=== PATIENT | male | born 1970 | race Caucasian/White ===

== ENCOUNTER → 2017-01-18 | Outpatient (CLI) | payer BC ==
--- NOTE | 2017-01-18 08:11 | DIAGNOSTIC IMAGING REPORT ---
CT OF THE SINUSES WITHOUT CONTRAST FUSION PROTOCOL CLINICAL HISTORY: Nasal polyps. Post treatment scan. COMPARISON STUDY: Sinus CT May 25, 2014. TECHNIQUE: Axial images of the sinuses were obtained without IV contrast according to Fusion protocol. Coronal reformats were viewed. FINDINGS: Visualized portions of the intracranial contents are unremarkable. Mastoid air cells are clear. Orbits are unremarkable. There is moderate polypoid mucosal thickening of the sinuses and nasal cavity, most pronounced within the left maxillary sinus. Moderate improvement is noted since exam of May 25, 2014. The bilateral ostiomeatal complexes are patent. The sphenoethmoidal recesses are occluded. The right frontoethmoidal recess is occluded. The left is narrowed. No bony destruction is present. Cribriform plate is intact. IMPRESSION: 1. Moderate polypoid mucosal thickening of the paranasal sinuses and nasal cavity suggestive of sinonasal polyposis with moderate improvement since exam of May 25, 2014. 2. No evidence of acute sinusitis. 3. Several occluded major drainage pathways, as described above. Electronically signed by: Jason Nova M.D. 01/18/2017 8:09 AM Dictated Date/Time: 01/18/2017 7:58 AM
== END | disposition home or self-care (01) ==
LOC: C.CTS 07:44
DX: J33.9 Nasal polyp, unspecified (principal)

== ENCOUNTER → 2017-04-29 | Outpatient (CLI) | payer OTHER ==
[~2017-04-29] VITALS: Ht 179.1 cm; Wt 92.2 kg
[2017-04-29 08:46] VITALS: BP 123/79; PULSE 64; Ht 179.1 cm; Wt 92.2 kg
== END | disposition home or self-care (01) ==
LOC: C.NEUR 08:25
PROVIDERS: ATTEND Internal Medicine Pulmonary Disease
DX: G47.33 Obstructive sleep apnea (adult) (pediatric) (principal); Z72.821 Inadequate sleep hygiene

== ENCOUNTER → 2017-05-11 | Outpatient (CLI) | payer OTHER ==
--- NOTE | 2017-05-12 05:50 | PAP/PSG TECHNICIAN REPORT ---
[facility] Client Solutions Director Polysomnogram Report Study name: None Report date: 05/12/2017 Study date: 05/11/2017 Referring Physician: Dr. Dante Boucher DO Name: MEGAN SCOTT Interpreting Physician: Dante Boucher D.O. Date of : 1970 Client Solutions Director: KARIS Orozco. Sex: Male Age: 47 StudyType: PSG Weight: 203.3 lbs Height: 47 years, Height 5' 10.5" Neck Circum:17.5in. BMI: 28.76 Medications: Fluticasone Propionate 50mcg/act, Baclofen 10mg, Botox injections for Rt shoulder. Patient History Study started on room air with no ETCO2 monitoring in room #8. 47 yr old male here tonight for a Diagnostic psg. He complains of loud snoring. He has significant sinus and nasal problems. He has nasal polyps that he plans to have removed after tax season. He had a sleep study done many years ago that showed many arousals but no significant apnea. His ESS=14/24. His neck circ=17.5 inches. Parameters Monitored NPSG: E1-M2, E2-M1, Fp1-M2, Fp2-M1, F3-M2, F4-M2, F4-M1, C3-M2, C4-M2, C4-M1, O1-M2, O2-M2, O2-M1, T3-M2, T4-M1, P3-M2, P4-M1, CHIN1, CHIN2, HR, EKG, Legs, PFLOW, SNOR, FLOW, CFLOW, Tidal Volume, THOR, ABDO, SpO2, PLTH, CPRESS, ETCO2 Wave, ETCO2, pH Sleep Architecture Sleep Stages Time at Lights Off 10:43:55 PM STAGES Time (min.) TST (%) Time at Lights On 5:35:25 AM Wake 17.5 -- Total Recording Time (TRT) 411.50 min. N1 29.0 7 Total Sleep Period (TSP) 404.5 min. N2 239.5 61 Total Sleep Time (TST) 394.0min. N3 82.5 21 Awake Time 17.5 min. REM 43.0 11 Wake after Sleep Onset 10.5 min. Sleep Efficiency (SE) 96 % Sleep Onset Latency (CHRISTIANO) 7.0 min. Number of Stage 1 Shifts None Awakenings 16 Stage Changes 110 Number of REM periods 8 REM 43.0 11 REM Latency 82.0 min. NREM 351.0 89 Body Position Analysis Supine Right Left Side Prone Vertical Total Sleep Time (min.) 411.5 0.0 0.0 0.00 0.0 0.0 Total Sleep Time (%) 100% 0% 0% 0 0% N/A% Total Sleep Time REM (min.) 43.0 0.0 0.0 None 0.0 0.0 Total Sleep Time NREM (min.) 351.0 0.0 0.0 None 0.0 0.0 Intermittent Wake (min.) 17.5 0.0 0.0 None 0.0 0.0 Total Sleep Period (%) 100% None None None None None Arousals Myoclonus (PLM) * Events Count Index Events Count Index Spontaneous 29 4 Events Awake (PLMW) 29 99.4 Respiratory 2 0.5 Events Asleep w/ Arousal (PLMA) 33 5.0 PLM 33 5 Events Asleep w/o Arousal (PLMS) 152 23.1 Snoring 12 2 Total Asleep 185 28.2 Total 75 11 Total 214 31 Respiratory Analysis * CA OA MA CH H RERA Total Count 0 0 0 0 19 0 19 Index 0.0 0.0 0.0 0 2.9 0 2.9 Mean Duration 0.0 0.0 0.0 0.00 23.5 0.0 23.5 Longest Duration 0.0 0.0 0.0 0.00 0.0 0.0 59.4 Respiratory Event Summary Total Supine ~Supine Right Left Prone REM NREM Apneas Count 0 0 N/A N/A N/A N/A 0 0 Index 0.0 0 N/A N/A N/A N/A 0 0 Hypopneas (4% Desat) Count 19 19 N/A N/A N/A N/A 14 5 Index 2.9 2.9 N/A N/A N/A N/A 19.5 0.9 Apneas & All Hypopneas Count 19 19 N/A N/A N/A N/A 14 5 Index 2.9 3 N/A N/A N/A N/A 19.5 0.9 Respiratory Events (Systems Architect+All Hyp+RERA) Count 19 19 N/A N/A N/A N/A 14 5 Index 2.9 3 N/A N/A N/A N/A 19.5 0.9 Respiratory Related Arousal Count 2 19 N/A N/A N/A N/A 1 2 Index 0.5 0 N/A N/A N/A N/A 1 0 Snoring Analysis Supine Right Left Prone REM NREM Total Snore duration 9.4 min Snores count 273 N/A N/A N/A 89 184 273 Snore mean duration 2.1 Sec Snores index 42 N/A N/A N/A 124.2 31.5 41.6 TST with snoring (%) 2.4% Desaturation Event Summary: Minimum %SpO2 Event Count Mean/Min/Max Duration(sec.) Desaturation Index % Time In Bed > 90 29 25.2 / 7.3 / 51.3 4.6 92.2 86 - 90 2 12.0 / 11.0 / 13.0 3.8 7.7 81 - 85 0 N/A 0.0 0.2 76 - 80 0 N/A 0.0 0.0 71 - 75 0 N/A 0.0 0.0 66 - 70 0 N/A 0.0 0.0 61 - 65 0 N/A 0.0 0.0 56 - 60 0 N/A 0.0 0.0 51 - 55 0 N/A 0.0 0.0 < 50 0 N/A 0.0 0.0 Total REM NREM Awake <50% 0.0 min. 0.0 min. 0.0 min. 0.0 min. 51 - 60% 0.0 min. 0.0 min. 0.0 min. 0.0 min. 61 - 70% 0.0 min. 0.0 min. 0.0 min. 0.0 min. 71 - 80% 0.0 min. 0.0 min. 0.0 min. 0.0 min. 81 - 90% 31.9 min. 10.5 min. 20.7 min. 0.6 min. 91 - 100% 375.6 min. 32.5 min. 327.7 min. 15.4 min. Average 93 92 93 93 Minimum SpO2 82 85 82 82 Desaturation Event Index 4.4 23.7 1.9 6.9 # Desat. Events below 89% 7 6 1 N/A Time(%) with Saturation below 89% 1.0 0.9 0.1 0.0 Time(min.) with Saturation below 89% 4.1 3.6 0.4 0.1 Time (mins) REM (mins) NREM (mins) % of TST SpO2 Below 90% 19 12 N7 2.5 SpO2 Below 88% 3 0 0 0 Heart Rate Analysis Min (bpm) Max (bpm) Average (bpm) Awake 46 93 61 NREM 49 127 57 REM 50 80 60 Overall 49 127 57 Supplemental O2 Values Minimum O2 level: None Value Start Time End Time Client Solutions Director Comments Mr. Scott slept in the supine position with the head of the bed slightly elevated. No cardiac arrhythmia noted. Some limb movements were noted. No bruxism noted. Snoring was noted and scored as a 1 on a scale of 1 through 5. (0=no snoring, 5=snoring loud enough to be heard through a closed door or down the cohen way) He did not use the restroom during the night. He stated that he slept worse than when at home. He was more restless. The final report will be interpreted and signed by a sleep physician. The completed physician report will then be placed in the patient medical record. Therapy (cm H2O) 0 TIB (min.) 411.5 TST (min.) 394.0 Sleep Onset (min.) 7.0 REM Onset From Sleep (min.) 82.0 Sleep Efficiency % 96 Wakefulness (%) 4 Wakefulness (min.) 17.5 NREM 1 (%) 7 NREM 1 (min.) 29.0 NREM 2 (%) 61 NREM 2 (min.) 239.5 NREM 3 (%) 21 NREM 3 (min.) 82.5 REM (%) 11 REM (min.) 43.0 # Arousals 75 Arousal Index 11 # Snore 273 Snore Index 41.6 AHI 2.9 AHI Supine 3 AHI Non-Supine N/A NREM AHI 0.9 REM AHI 19.5 RDI 2.9 # Obstructive Apnea 0 # Central Apnea 0 # Mixed Apnea 0 # Hypopneas 19 RERAs 0 Total Respiratory Events 20 Time Below SpO2 89% (min.) 4.0 Mean NREM SpO2 (%) 93 Mean REM SpO2 (%) 92 Mean Sleep SpO2 (%) 93 Min NREM SpO2 (%) 82 Min REM SpO2 (%) 85 Position Supine (min.) 411.5 Position Non-supine (min.) 0.0 LM Index Sleep 28.2 LM Index NREM 30.4 LM Index REM 9.8 Mean Heart Rate (bpm) 57 Min Heart Rate (bpm) 49
--- NOTE | 2017-05-14 17:56 | Sleep Study ---
Sleep Study Report Date of Service: 05/11/2017 Sleep Study Report CLINICAL DATA: The patient is a 47-year-old male with a history of snoring, disturbed nocturnal sleep, and daytime tiredness. He has a history of nasal polyps. This was an in-lab overnight diagnostic polysomnography. His Jean Sleepiness Scale score was 14 out of a possible 24. SLEEP ARCHITECTURE: The total sleep period was 404.5 minutes. The total sleep time was 394 minutes. The sleep efficiency was normal at 96%. The sleep latency was normal at 7 minutes. Wake after sleep onset was normal at 10.5 minutes. REM latency was normal at 82 minutes. Sleep consisted of stage N1 7%, stage N2 61%, stage N3 21%, stage REM 11%. AROUSAL DATA: The patient had a total of 75 arousals including 29 spontaneous arousals, 2 respiratory arousals, 33 PLM arousals, and 12 snoring arousals. The arousal index was 11. PLM DATA: The patient had 185 periodic limb movements of sleep for a PLM index of 28.2. There were 33 arousals associated with limb movements for a PLM arousal index of 5.0. The patient gave no history of restless legs. EKG: The underlying cardiac rhythm was normal sinus. The cardiac rates 49-80 beats per minute. The average heart rate was 57 beats per minute. No a arrhythmias were noted. RESPIRATORY DATA: The patient had a total of 19 respiratory events, all hypopneas. Hypopneas were scored according to the 4% desaturation rule. The mean duration of the hypopneas was 23.5 seconds. The apnea-hypopnea index was 2.9 events per hour. This would be normal. This would not suggest significant sleep apnea. OXIMETRY DATA: The average saturation for the night was 93%. The minimum saturation was 82%. The desaturations were very transient. There was a total of 4.1 minutes with saturations less than 89%. BOX SORTER COMMENTS: The patient slept in the supine position with the head of the bed slightly elevated. No cardiac arrhythmia noted. Some limb movements were noted. No bruxism noted. Snoring was noted and scored as a 1 on a scale of 1 through 5. He did not use the restroom during the night. IMPRESSIONS: 1. No evidence of obstructive sleep apnea 2. Primary snoring 3. Periodic limb movement disorder COMMENTS: The patient had a normal sleep efficiency. His sleep for the most part was well consolidated. There was a decrease in the amount of REM sleep. He had a modest number of limb movements but with few arousals and no history of restless legs either before bed or in bed. RECOMMENDATIONS: 1. The patient will be following up with his ENT physician regarding the snoring. 2. The patient should avoid sleeping in the supine position as there is typically more snoring while supine. 3. Patient has an elevated Jean Sleepiness Scale score. His history is that he typically sleeps in the vicinity of 4-5 hours per night. 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 The patient should allow himself approximately 7.5 hours of sleep time per night. Copies To 1: Siddharth Sinha M.D.; Dante Boucher DO; Maritza Busch, ROBERT
== END | disposition home or self-care (01) ==
LOC: C.NEUR 21:00
PROVIDERS: ATTEND Internal Medicine Pulmonary Disease
DX: G47.33 Obstructive sleep apnea (adult) (pediatric) (principal); Z72.821 Inadequate sleep hygiene; J32.9 Chronic sinusitis, unspecified